=== PATIENT | female | born 1965 | race Caucasian/White ===

== ENCOUNTER 2024-09-14 19:25 | Emergency (ER) | payer OTHER ==
[2024-09-14] MEDS ORDERED: Sodium Chloride 0.9% 10 ML Syringe FLUSH PRN (19:33)
[2024-09-14 19:40] LABS: BASOPHILS ABSOLUTE AUTO 0.1 x10^3/uL (0.0-0.2); BASOPHILS PERCENT AUTO 0.8 % (0.2-1.2); EOSINOPHILS ABSOLUTE AUTO 0.1 x10^3/uL (0.0-0.5); EOSINOPHILS PERCENT AUTO 1.5 % (0.0-4.0); HEMATOCRIT 40.7 % (33.0-47.0); HEMOGLOBIN 13.8 g/dL (12.0-16.0); IMMATURE GRAN ABSOLUTE AUTO 0.01 x10^3/uL (0.00-0.07); LYMPHOCYTES ABSOLUTE AUTO 3.9 x10^3/uL (1.0-4.8); LYMPHOCYTES PERCENT AUTO 41.5 % (25.0-50.0); MEAN CORPUSCULAR HEMOGLOBIN 29.3 pg (26.0-32.0); MEAN CORPUSCULAR HGB CONC 33.9 g/dL (32.0-36.0); MEAN CORPUSCULAR VOLUME 86.4 fL (78.0-93.0); MONOCYTES ABSOLUTE AUTO 0.8 x10^3/uL (0.0-0.8); NEUTROPHILS ABSOLUTE AUTO 4.4 x10^3/uL (1.8-7.7); NEUTROPHILS PERCENT AUTO 47.1 % (50.0-80.0); PLATELET COUNT,PLT 209 x10^3/uL (130-400); RED BLOOD CELL COUNT 4.71 x10^6/uL (4.00-5.50); WHITE BLOOD CELL COUNT,WBC 9.3 x10^3/uL (4.0-10.0)
[2024-09-14] MEDS: Sodium Chloride 0.9% 1,000 ML IV ONE (19:40)
[2024-09-14 19:48] LABS: PROTHROMBIN TIME 10.4 SEC (9.6-12.0); PTT,PARTIAL THROMBOPLSTIN TIME 23.9 SEC (23.5-33.2)
[2024-09-14 19:58] LABS: A/G RATIO 1.18; ALANINE AMINOTRANSFERASE,ALT 26 U/L (14-59); ALKALINE PHOSPHATASE 65 U/L (46-116); ASPARTATE AMNIOTRANSFERASE,AST 30 U/L (15-37); BILIRUBIN TOTAL 0.3 mg/dL (0.2-1.0); BLOOD UREA NITROGEN,BUN 15 mg/dL (7-18); CALCIUM 8.8 mg/dL (8.5-10.1); CARBON DIOXIDE,CO2 27 mmol/L (21-32); CHLORIDE,CL 103 mmol/L (98-107); CREATININE 0.9 mg/dL (0.55-1.02); GLUCOSE RANDOM 135 mg/dL (70-99); PRO B-TYPE NATRIUR PEPT,BNPPRO 71 pg/mL (<=125); PROTEIN TOTAL,TP 7.4 g/dL (6.4-8.2); SODIUM,NA 141 mmol/L (136-145)
[2024-09-14 19:59] LABS: ANION GAP 13.8 mmol/L (5-15); ESTIMATED GFR 75 mL/min (>=60); POTASSIUM,K 2.8 mmol/L (3.5-5.1)
[2024-09-14] MEDS: Potassium Bicarbonate/Cit Ac 10 MEQ Effervescent Tab PO ONE (20:12)
[2024-09-14] MEDS: Lidocaine 1% 10 ML MDV INJECT ONE (20:37)
[2024-09-14] MEDS: Iopamidol 755 Mg/ML 100 ML Bottle IVPUSH ONE (20:51)
[2024-09-14] MEDS: Diphtheria,Pertussis(Acell),Tetanus Vaccine 0.5 ML Syringe IM ONE (21:26)
[2024-09-14] MEDS: Potassium Chloride 20 MEQ Tab.ER PO ONE (21:26)
== END 2024-09-14 23:12 | disposition short-term general hospital (02) ==
LOC: VM.ED 19:25
DX: R55 Syncope and collapse (principal); E87.6 Hypokalemia; Z88.1 Allergy status to other antibiotic agents
CPT/HCPCS: 36415; 80053; 82947; 83735; 83880; 84484; 85025; 85379; 85610; 85730; 90471; 90715; 93005; 96360; 99285; A9270; J2003; J7030; Q9967